=== PATIENT | female | born 1990 | race Two or more races ===

== ENCOUNTER 2023-04-08 09:40 | Emergency (ER) | payer OTHER ==
[~2023-04-08] VITALS: Ht 147.3 cm; Wt 73.0 kg
[2023-04-08] MEDS: methylPREDNISolone SOD SUCC 125 MG/2 ML VL IM ONE (12:52)
[2023-04-08] MEDS: KETOROLAC TROMETH 30 MG/ML 1ML VIAL IM ONE (12:53)
[2023-04-08] MEDS ORDERED: PRED20TA2 PO (12:56)
[2023-04-08] MEDS ORDERED: IBUP1TAB5 PO (12:56)
[2023-04-08 13:01] VITALS: BP 132/87; PULSE 94; RESP 16; TEMP 98.1; O2SAT 97
[2023-04-09] MEDS ORDERED: IBUP1TAB5 PO (10:37)
[2023-04-09] MEDS ORDERED: PRED20TA2 PO (10:37)
== END 2023-04-08 13:24 | disposition home or self-care (01) ==
LOC: ER 09:40
DX: M25.511 Pain in right shoulder (principal)
CPT/HCPCS: 73030; 96372; 99284; J1885; J2930

== ENCOUNTER 2025-01-25 14:55 | Emergency (ER) | payer OTHER ==
[~2025-01-25] VITALS: Ht 149.9 cm; Wt 98.3 kg
[~2025-01-25 14:55] MED LIST: IBUP1TAB5 PO; PRED20TA2 PO
[2025-01-25 15:00] VITALS: O2SAT 97
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
[2025-01-25] MEDS ORDERED: CYCL-838 PO (20:09)
[2025-01-25] MEDS ORDERED: IBU600T PO (20:09)
[2025-01-25 21:15] VITALS: BP 137/95; PULSE 78; RESP 13; TEMP 98.2
[2025-01-26] MEDS ORDERED: IBUP1TAB5 PO (18:17)
== END 2025-01-25 22:02 | disposition home or self-care (01) ==
LOC: ER 14:55
DX: S39.012A Strain of muscle, fascia and tendon of lower back, initial encounter (principal); S76.012A Strain of muscle, fascia and tendon of left hip, initial encounter; Z79.899 Other long term (current) drug therapy; Z79.52 Long term (current) use of systemic steroids; V89.2XXA Person injured in unspecified motor-vehicle accident, traffic, initial encounter; Y93.89 Activity, other specified; Y92.488 Other paved roadways as the place of occurrence of the external cause; Y99.8 Other external cause status
CPT/HCPCS: 72040; 72070; 72100; 73501